=== PATIENT | male | born 1960 | race Caucasian/White ===

== ENCOUNTER 2019-07-14 20:05 | Emergency (ER) | payer OTHER ==
[~2019-07-14] VITALS: Ht 170.2 cm; Wt 63.6 kg
[2019-07-14 20:21] VITALS: Ht 170.2 cm; Wt 63.6 kg
[2019-07-14] MEDS ORDERED: MORPHINE IMMEDI30 M1 PO (20:23)
[2019-07-14] MEDS ORDERED: VISTARIL50 MG PO (20:24)
[2019-07-14] MEDS ORDERED: NEURONTIN800 MG PO (20:24)
[2019-07-14 21:04] LABS: BASOPHILS 0.9 % (0-2); EOSINOPHILS 2.5 % (0-7); HEMATOCRIT 38.9 % (42.0-54.0); HEMOGLOBIN 12.1 g/dL (13.5-17.5); IMMATURE GRANULOCYTES 0.4 % (0-5); LYMPHOCYTES 24.8 % (15-50); MCH 27.8 pg (26.0-34.0); MCHC 31.1 g/dL (31.0-37.0); MCV 89.4 fL (80.0-100.0); MEAN PLATELET VOLUME 9.6 fL (7.4-10.4); MONOCYTES 6.3 % (2-11); NEUTROPHILS 65.1 % (40-80); PLATELET COUNT 325 10x3/uL (130-400); RBC 4.35 10x6/uL (4.20-6.10); RDW 13.9 % (11.5-14.5); WBC 8.1 10x3/uL (4.8-10.8)
[2019-07-14 21:10] LABS: CALC OSMOLALITY 281 mosm/kg (275-300); CALCIUM 8.8 mg/dL (8.5-10.1); CARBON DIOXIDE 29.1 mmol/L (21.0-32.0); CHLORIDE - SERUM 102 mmol/L (98-107); GLUCOSE 140 mg/dL (74-106); POTASSIUM - SERUM 4.3 mmol/L (3.5-5.1); SODIUM 140 mmol/L (136-145); UREA NITROGEN 14 mg/dL (7-18); eGFR NON AFRICAN AMERICAN 81 mL/min (90-120)
[2019-07-14 21:16] LABS: ALBUMIN 3.1 g/dL (3.4-5.0); ALKALINE PHOSPHATASE 78 U/L (30-120); ALT (SGPT) 23 U/L (10-68); PROTEIN - SERUM 6.7 g/dL (6.4-8.2)
[2019-07-14] MEDS ORDERED: CLEOCIN HCL300 MG PO (21:43)
[2019-07-14 22:19] VITALS: BP 154/99
== END 2019-07-14 22:19 | disposition home or self-care (01) ==
LOC: D.ER 20:05
PROVIDERS: Emergency Medicine
DX: C44.02 Squamous cell carcinoma of skin of lip (principal)

== ENCOUNTER 2019-09-04 13:27 | Emergency (ER) | payer OTHER ==
[~2019-09-04] VITALS: Ht 170.2 cm; Wt 65.9 kg
[~2019-09-04 13:27] MED LIST: CLEOCIN HCL300 MG PO; MORPHINE IMMEDI30 M1 PO; NEURONTIN800 MG PO; VISTARIL50 MG PO
[2019-09-04 13:34] VITALS: Ht 170.2 cm; Wt 65.9 kg
[2019-09-04] MEDS ORDERED: NEURONTIN800 MG PO (14:40)
[2019-09-04 15:05] VITALS: BP 126/68
== END 2019-09-04 15:06 | disposition home or self-care (01) ==
LOC: D.ER 13:27
DX: G62.9 Polyneuropathy, unspecified (principal); C80.1 Malignant (primary) neoplasm, unspecified; M79.642 Pain in left hand; M79.641 Pain in right hand